=== PATIENT | male | born 1960 | race Caucasian/White ===

== ENCOUNTER 2017-01-10 17:38 | Inpatient (IN) | payer BC ==
[~2017-01-10] VITALS: Ht 177.8 cm; Wt 94.5 kg
--- NOTE | ~2017-01-10 | ER ---
PATIENT'S NAME: LAURENCE YOON [facility] AGE: 56 Y [address] ROOM: [place] [address] LOCATION: GPCU ADMIT DATE: 01/10/2017 ER/Outpatient Report DISCHARGE DATE: FAMILY PHYSICIAN: Charles Jordan MD ATTENDING PHYSICIAN: Adolfo Hurley CHIEF COMPLAINT: Chest pain. HISTORY OF PRESENT ILLNESS: The patient was out riding his bicycle today when he developed progressive worsening of substernal chest pain, tightness, nausea and vomiting. He had been splashing water over himself to try to make him feel better. He rode about 20 miles. He said this was a tough ride today, but it was not completely out of character for that. He is otherwise noting some lightheadedness, but no other significant concerns. PAST MEDICAL HISTORY: Notable for elevated cholesterol which he was treating. PAST SURGICAL HISTORY: Noncontributory. 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 No other significant findings. Denies alcohol, tobacco or drug use. PHYSICAL EXAMINATION: VITAL SIGNS: Blood pressure 160/93, heart rate is 77, and SpO2 is 99% on room air. GENERAL: Age-appropriate male. Ill appearance with poor color. He is in obvious discomfort and very mild distress. The patient otherwise feeling okay. NEURO: The patient is awake and alert, follows commands in all extremities. No asymmetry. No speech difficulties. HEENT: Normocephalic, atraumatic. Eyes are PERRL. Oropharynx is clear. NECK: Supple. Trachea is midline. CHEST: Heart is regular rate and rhythm with no obvious murmurs. LUNGS: Clear to auscultation bilateral. No rhonchi, wheezes, or rales. ABDOMEN: Soft, nontender, and nondistended. No rebound or guarding. EXTREMITIES: Warm and well perfused with no significant abnormalities. No edema or erythema. SKIN: Damp cool and clammy, the patient has been pouring water over himself however. PATIENT'S NAME: LAURENCE YOON [facility] AGE: 56 Y [address] ROOM: [place] [address] LOCATION: GPCU ADMIT DATE: 01/10/2017 ER/Outpatient Report DISCHARGE DATE: FAMILY PHYSICIAN: Charles Jordan MD ATTENDING PHYSICIAN: Adolfo Hurley LABORATORY DATA AND X-RAYS: WBCs are elevated at 12.7, hemoglobin 16.7, and platelets of 244. Lactate is elevated at 8.3. Potassium is 3.0, CO2 is 26, glucose is 210. No abnormalities of the LFTs. GFR 57. Magnesium, CPK, CK-MB and troponin are within normal limits with magnesium of 1.6. CRP is 1.05. His Procalcitonin is below threshold. IMAGING: EKG appears to be sinus rhythm with ST-segment elevation, most prominent in lead V2, but notable in V1, V3 and V4. IMPRESSION: ST segment elevation myocardial infarction. EMERGENCY DEPARTMENT COURSE: The patient was seen and evaluated as above. He arrived at 1738 hours. Initial EKG was dated, at 05:45, arrival time was 05:38. STEMI was activated at approximately 05:55. I did discuss the case with Dr. Hurley, [employer]. We will proceed to the catheterization lab. Abciximab was ordered and initiated in the emergency department. The patient did receive aspirin and the nitroglycerin drip in addition to some Zofran for his nausea. He was perhaps feeling slightly better. His clamminess did improve significantly after his wet clothes were removed as well. The patient was taken to the catheterization lab for intervention and presumed acute coronary lesion. CRITICAL CARE TIME: 31 minute included on this patient for ordering and interpreting EKG, ordering labs, patient evaluation, initiating nitroglycerin, initiating abciximab, initiating the STEMI alert, consult with Dr. Hurley and care is warranted for acute life-threatening pathology. MD TERELL QUIÑONES/laurie /[id number] d: 01/11/17 0704 t: 01/11/17 0814, OUTPATIENT REPORT
--- NOTE | ~2017-01-10 | CATH ---
Cardiac Diagnostic + PCI Report Demographics Patient Name KARRIE Seymour Gender Male Date of 1960 Age 56 year(s) Patient Number [id number] Date of Study 01/10/2017 Visit Number [id number] Room Number G6[address] [place] [id number] Ht 177.8 cm Wt 94 kg Referring Xavi Mata MD Primary Physician Physician Performing Xavi Mata MD Secondary Physician Physician Diagnostic Xavi Mata MD Assisting Physician Physician Interventional Xavi Mata MD Physician Bridge Contractor Physician Findings and Conclusions Diagnostic Findings and Conclusion 1 vessel CAD ( 100% LAD) Diagnostic Recommendations PCI LAD Interventional Findings and Conclusion 0.014 Prowater 2.5x15 Emerge 3X24 Promus to 3.11 Interventional Recommendations DAPT x1 year Routine post angioseal Risk Factor modifications Procedure Description The patient was brought to the diagnostic cardiac catheterization-EP laboratory in an emergent, non-sedated state. Informed consent was obtained in verbal form after the risks and benefits were explained. The patient had no further questions and agreed to proceed. The puncture-incision site(s) were shaved and prepped with ChloraPrep and draped in the usual sterile manner. Conscious sedation, supplemental oxygen, and pain control medications were delivered by a registered nurse under physician guidance. Surface ECG rhythm, blood pressure measurement, and pulse oximetry were monitored throughout the procedure. Arterial access. The access site was infiltrated with lidocaine. The vessel was entered with the Seldinger technique. A sheath was advanced into the vessel and used for catheter placement. Selective left coronary angiography. A catheter was advanced into the left coronary vessel ostium under Fluoroscopic guidance. Contrast was injected by hand. Images were obtained in multiple projections. Selective right coronary angiography. A catheter was advanced into the right coronary vessel ostium under fluoroscopic guidance. Contrast was injected by hand. Images were obtained in multiple projections. Left heart catheterization. A catheter was advanced across the aortic valve to the left ventricle under fluoroscopic guidance. Resting hemodynamics were obtained. Angioplasty and Stent Placement: A guiding catheter was used to intubate the vessel. A 0.14 wire was then used to cross the lesion. A balloon catheter was placed across the lesion and inflated. The balloon catheter was then removed. A Drug Eluting Stent was placed and inflated. Post placement angiograms were performed. Arterial artery hemostasis was achieved. The patient was transferred to a regular nursing floor via cart accompanied by a nurse. The patient left the laboratory in stable condition. Diagnostic Cath Status: Emergency Interventional Cath Status: Emergency Procedure Procedure Type Diagnostic procedure:Angiography:, Coronary Angios /[facility] PCI procedure:Drug Eluting Coronary Stent:, LAD The procedure was explained in detail to the patient. Risks, complications and alternative treatments were reviewed. Written consent was obtained. Medications Reviewed with Patient prior to Procedure. Angiographic Findings Dominance: Right Cardiac Arteries and Lesion Findings LMCA: Abnormal.large ostial spasm LAD: Abnormal. Lesion on Prox LAD: Ostial.100% stenosis reduced to 0%. Pre procedure GUADALUPE 0 flow was noted. Post Procedure GUADALUPE III flow was present. The guidewire cross was successful.The lesion was diagnosed as a high risk lesion.Culprit lesion. Devices used - Prowater Wire .014 x 180. Number of passes: 1. - Prowater Wire .014 x 180. Number of passes: 1. - Emerge Balloon 2.5 x 15. 1 inflation(s) to a max pressure of: 8 donna. - Promus Premier 3.0 x 24 Stent. 1 inflation(s) LCx: Normal (0% Stenosis). RCA: Normal (0% Stenosis). Ramus: Normal (0% Stenosis). Coronary Tree Procedure Data Procedure Date Date: 01/10/2017Start: 06:31 PMEnd: 08:39 PM Entry Locations - Retrograde Percutaneous access was performed through the Right Femoral artery (Primary location). A 6 Fr sheath was inserted. Procedure Medications Order and Administration + + + + + !Time !Medication !Dosage !Route ! + + + + + !01/10/2017 06:30 !Versed !1 mg !I.V. ! !PM ! ! ! ! + + + + + !01/10/2017 06:30 !Fentanyl !50 mcg ! ! !PM ! ! ! ! + + + + + !01/10/2017 06:32 !Fentanyl !50 mcg ! ! !PM ! ! ! ! + + + + + !01/10/2017 06:35 !Versed !0.5 mg !I.V. ! !PM ! ! ! ! + + + + + !01/10/2017 06:42 !Angiomax (Bivalirudin) !70 mg ! ! !PM !(ACC_5) ! ! ! + + + + + !01/10/2017 06:42 !Angiomax (Bivalirudin) !1.75 mg/kg/hr! ! !PM !(ACC_5) ! ! ! + + + + + 01/10/2017 06:49 !Nitroglycerin !5 mcg/min !I.V. drip ! !PM ! ! ! ! + + + + 01/10/2017 06:57 !Nitroglycerin ! !I.V. drip ! !PM ! ! ! ! + + + + 01/10/2017 06:58 !Nipride !50 mcg !I.C. ! !PM ! ! ! ! + + + + 01/10/2017 07:02 !Nipride !50 mcg !I.C. ! !PM ! ! ! ! + + + + + 01/10/2017 07:04 !0.9% NaCl !125 ml !I.V. drip ! !PM ! ! ! ! + + + + + 01/10/2017 07:11 !Brilinta (Ticagrelor) !180 mg !P.O. ! !PM !(ACC_20) ! ! ! + + + + 01/10/2017 07:39 !Oxygen ! ! ! !PM ! ! ! ! + + + + 01/10/2017 07:42 !Potassium Chloride !60 meq !I.V. ! !PM ! ! ! ! + + + + 01/10/2017 06:21 !Reopro (Abciximab) (ACC_7) !17 ! ! !PM ! ! ! ! + + + + + !01/10/2017 07:42 !Reopro (Abciximab) (ACC_7) !10 mcg/min !I.V. ! !PM ! ! ! ! + + + + + !01/10/2017 06:25 !Reglan !5 mg !I.V. ! !PM ! ! ! ! + + + + + !01/10/2017 07:47 !unlisted medication ! ! ! !PM ! ! ! ! + + + + + Devices Used - A6 Fr. BS JL 4 Diag. Catheterwas used for:Left coronary angiography. - A6 Fr. BS JR 4 Diag. Catheterwas used for:Right coronary angiography. - A6 Fr. XB 3.5 Guide Catheterwas used for:LAD Intervention. - A6 Fr. BS Angled Pigtail Diag. Catheterwas used for:LV Pressures. Contrast Material - Isovue [id number] ml Fluoroscopy Time: Diagnostic: 13:00 minutes. Total: 13:00 minutes. Fluoroscopy Dose: Diagnostic: 2484 mGy. Total: 2484 mGy. Estimated Blood Loss: 5 ml. Medical History Performed Procedures and Imaging Results - No ACC stress or imaging studies were performed. Allergies - No known allergies. Risk Factors The patient risk factors include:hypertension and family history of premature CAD. Admission Data Admission Date: 01/10/2017 Admission Time: 07:14 PM Admit Source: Emergency department Insurance Payors: Private health insurance. Clinical Evaluation Leading to Procedure - The patient's CAD presentation was assessed as: STEMI.The symptom onset was first noted on 01/10/2017 05:15 PM Hemodynamics Condition: Rest O2 Consumption: Estimated: 253.83Heart Rate: 74 bpm Pressures (mmHg) +-----+ + !Site !Pressure ! +-----+ + !AO !247/144 (144) ! +-----+ + !AO !118/75 (96) ! +-----+ + !LV !129/0 ,11 ! +-----+ + !LV !115/10 ,21 ! +-----+ + !LV !147/-9 ,14 ! +-----+ + !LV !147/- ,15 ! +-----+ + !AO !109/68 (88) ! +-----+ + !LV !146/- ,15 ! +-----+ + Valve Gradients and Areas + +---------+---------+---------+ +---------+ + !Valve !Peak !Mean !Area !Index !Flow !Source ! + +---------+---------+---------+ +---------+ + !Aortic !37 !19 ! ! ! ! ! + +---------+---------+---------+ +---------+ + !Aortic !37 !19 ! ! ! ! ! + +---------+---------+---------+ +---------+ + Shunts Oxygen Values O2 Consumption 253.83 Discharge Data Discharge Date: 01/13/2017 Hospital Status: Inpatient Signatures dtt: Adolfo Hurley (cardio) dtd: 01/10/17 1831 Physician Self Edit
--- NOTE | ~2017-01-10 | DS ---
PATIENT'S NAME: LAURENCE YOON [facility] AGE: 56 Y [address] ROOM: [id number] [place], [place] [address] LOCATION: GPCU ADMIT DATE: 01/10/2017 Discharge Summary DISCHARGE DATE: 01/13/2017 FAMILY PHYSICIAN: Charles Jordan MD ATTENDING PHYSICIAN: Adolfo Hurley PRINCIPAL DIAGNOSIS: ST-elevation myocardial infarction, status post drug- eluting stent to left anterior descending. SECONDARY DIAGNOSES: 1. New-onset insulin-dependent diabetes. 2. Polymyalgia rheumatica. 3. Hypertension. HOSPITAL COURSE: This 56-year-old gentleman presented to the hospital with chest pain. He was found to have ST-elevation myocardial infarction and was taken to the catheterization lab with a drug-eluting stent to the LAD. He was started on dual antiplatelets, statin, and a beta gissell. He was also started on SHAKILA inhibitor to control his blood pressure. An echocardiography was also done in the hospital which showed ejection fraction of 60% to 65% with [id number] concentric left ventricular hypertrophy. His hemoglobin A1c was noted to be 12. He was started on insulin detemir which was titrated upward during the course of the hospitalization with a final dose of 15 units of detemir twice daily. In addition to that, we started him on sliding scale insulin, which is mild. He was informed about the hypoglycemic symptoms as well as to check his blood glucose more frequently in the ensuing days. The patient is a nurse himself. I also recommended to follow up with the primary care physician in 4 days to see how blood glucose is doing and if adjustment of the insulin needs to be made. DISCHARGE MEDICATIONS: 1. Aspirin 81 mg p.o. every day. 2. Atorvastatin 20 mg p.o. every day. 3. Vasotec 2.5 mg p.o. every day. 4. Folic acid 1 mg p.o. every day. 5. Insulin aspart mild sliding scale a.c. and q.h.s. 6. Insulin detemir 15 units subcu b.i.d. 7. Metformin 1 g p.o. twice daily. 8. Methotrexate 20 mg p.o. q.7 days. 9. Metoprolol tartrate 25 mg p.o. twice daily. 10. Omeprazole 20 mg p.o. every morning. 11. Prednisone 5 mg p.o. every morning. 12. Prednisone 1 mg take 2 tablets every morning. 13. Brilinta 90 mg p.o. twice daily. 14. Tramadol 200 mg p.o. twice daily. PATIENT'S NAME: LAURENCE YOON [facility] AGE: 56 Y [address] ROOM: [place] [address] LOCATION: GPCU ADMIT DATE: 01/10/2017 Discharge Summary DISCHARGE DATE: 01/13/2017 FAMILY PHYSICIAN: Charles Jordan MD ATTENDING PHYSICIAN: Adolfo Hurley 15. Venlafaxine XR 150 mg p.o. every morning. 16. Nabumetone 750 mg p.o. every morning. DIET: Diabetic diet. ACTIVITY: As tolerated. FOLLOWUP: Follow up with Dr. Adolfo Hurley in 2 weeks, and follow up with Dr. Jordan, the primary care physician, in 4 days. SUBJECTIVE: On the day of discharge, no acute distress. No acute events overnight. No shortness of breath. No chest pain. No fever. OBJECTIVE: VITAL SIGNS: 123/70, 16, 68, afebrile. GENERAL: No acute distress. Alert and oriented x3. HEENT: Head: Atraumatic, normocephalic. Eyes: Nonicteric. No pallor. Oropharynx: Moist mucous membranes. CARDIOVASCULAR: S1 and S2. No murmur, gallops, or rubs. LUNGS: Clear to auscultation bilaterally. ABDOMEN: Soft, nontender, and nondistended. Bowel sounds are present. EXTREMITIES: No clubbing, cyanosis, or edema. LABORATORY DATA: Notable lab work on discharge: Creatinine 0.8 on 01/12/2017. I spent 40 minutes in discharge planning, coordinating care, and explaining diagnosis as well as providing diabetic education to this patient. MD CHIN HANDY/laurie /[id number] d: 01/13/17 1619 t: 01/20/17 1520, DISCHARGE SUMMARY
--- NOTE | ~2017-01-10 | HP ---
PATIENT'S NAME: LAURENCE YOON [facility] AGE: 56 Y [address] ROOM: [address] [place], [place] [address] LOCATION: [facility] ADMIT DATE: 01/10/2017 History & Physical DISCHARGE DATE: FAMILY PHYSICIAN: Charles Jordan MD ATTENDING PHYSICIAN: Adolfo Hurley DATE OF SERVICE: ADDENDUM: Total time spent in care 40 minutes including chart review, interviewing the patient, examining the patient, addressing all the questions and concerns that the patient had, and going over the plan of care with the patient. I also went over the plan of care with the nurse as well. Half of the total time spent was in chart review and interviewing and examining the patient. The other half of the total time spent was in counseling including addressing all the questions and concerns and also going over the plan of care with the patient. For the details of the history and physical, refer to the history and physical dictated earlier. I had to dictate the history and physical twice because the first time I dictated the H and P was never transcribed. So I dictated the H and P for the second time when I realized that the first one was never transcribed. MD EDY AGRAWAL/laurie /[id number] D: 440 T: HISTORY & PHYSICAL
--- NOTE | ~2017-01-10 | HP ---
PATIENT'S NAME: LAURENCE YOON [facility] AGE: 56 Y [address] ROOM: [address] [place], [place] [address] LOCATION: GPCU ADMIT DATE: 01/10/2017 History & Physical DISCHARGE DATE: FAMILY PHYSICIAN: Charles oJrdan MD ATTENDING PHYSICIAN: Adolfo Hurley DATE OF SERVICE: CHIEF COMPLAINT: Chest pain. HISTORY OF PRESENT ILLNESS: This is a 56-year-old male, who says that he came here today to our hospital to donate blood. He says he donated roughly 800 mL of blood. After that, the patient was riding his bicycle to [place]. He says that when he rode about 18 miles, he felt this bilateral shoulder pain of intensity about 6/10. When he rode on mile 19, the patient felt nauseous, but he did not vomit. When he rode to mile 20, the patient started feeling this substernal chest pain of 10/10 in intensity with radiation to bilateral shoulders. The patient then stopped riding the bicycle and tried to get some rest. However, the chest pain in the substernal area and the bilateral shoulders kept getting worse. The patient called his , who in turn came here to pick him up, and brought him here to the Emergency Room. In the Emergency Room, the patient's chest pain persisted, and he received nitroglycerin without much relief. According to the patient, because currently the EKG cannot be found, I have requested the ER to send up the EKG. The patient says that there is a STEMI. The patient was taken to the [facility] on January 10, 2017, and underwent one drug-eluting stent to the LAD. After that, a repeat EKG was performed, which I can see that in the chart, it was done on January 10, 2017 at 08:02 p.m. It shows sinus rhythm, heart rate of 83, W[place] of 168 msec, QRS of 96 msec, QTc of 403 msec, and no ST-elevation or ST depression. No axis deviation. After the cardiac cath, the patient came to the Progressive Care Unit, and currently is chest pain free. EKG just came down from the ED. In the ED, the EKG on January 10, 2017 at 05:[address] elevation on EKG and heart rate of 77, sinus rhythm. REVIEW OF SYSTEMS: As mentioned in the history of present illness. All other systems were reviewed and they were negative except those mentioned in the history of present illness. PAST MEDICAL HISTORY: PATIENT'S NAME: LAURENCE YOON [facility] AGE: 56 Y [address] ROOM: [place] [address] [facility] ADMIT DATE: 01/10/2017 History & Physical DISCHARGE DATE: FAMILY PHYSICIAN: Charles Jordan MD ATTENDING PHYSICIAN: Adolfo Hurley 1. Gastroesophageal reflux disease. 2. Polymyalgia rheumatica, on prednisone and also on methotrexate. 3. Hyperlipidemia. 4. Depression. 5. Obstructive sleep apnea, on CPAP at night. The patient is very compliant. ALLERGIES: NO KNOWN DRUG ALLERGIES. HOME MEDICATIONS: 1. Methotrexate eight tablets p.o. weekly of 2.5 mg every Friday. 2. Relafen 1000 mg p.o. every morning. 3. Omeprazole 20 mg p.o. daily. 4. Prednisone 7 mg p.o. every morning. 5. Simvastatin 20 mg p.o. daily. 6. Tramadol 200 mg p.o. b.i.d. 7. Venlafaxine 150 mg p.o. every morning. SOCIAL HISTORY: The patient denies any cigarette or any illegal drug use. The patient is a social alcohol drinker, and he denies any alcohol abuse. PAST SURGICAL HISTORY: 1. Status post left knee surgery 5 times in the past due to ACL injury. 2. Status post right shoulder rotator cuff surgery in the past. FAMILY HISTORY: Father has rheumatoid arthritis and mother had cardiac stents placed in her 60s. PHYSICAL EXAMINATION: VITAL SIGNS: At the time of my dictation, temperature was 98, blood pressure was 130/85, respirations were 14, heart rate was 81, and saturation was 97% on room air. GENERAL APPEARANCE: Alert and oriented x3, in no acute distress. HEENT: Pupils were equally round and reactive to light. Extraocular muscles were intact. Nasal turbinates are normal bilaterally. Moist oral mucosa. NECK: No JVD. CARDIOVASCULAR: Regular rate and rhythm. Normal S1 and S2. No murmur. No rubs. No gallops. RESPIRATORY: Clear. Chest wall was nontender to palpation. ABDOMEN: Obese, soft, nontender, and nondistended. Bowel sounds are present. No hepatosplenomegaly. EXTREMITIES: No edema in upper or lower extremities. PATIENT'S NAME: LAURENCE YOON [facility] AGE: 56 Y [address] ROOM: [place] [address] [facility] AD[facility] DATE: 01/10/2017 History & Physical DISCHARGE DATE: FAMILY PHYSICIAN: Charles Jordan MD ATTENDING PHYSICIAN: Adolfo Hurley SKIN: No ulcer. No rash. No cyanosis. NEUROLOGIC: Grossly nonfocal. LABORATORY DATA: Lactic acid of 8.3, CPK of 240, and troponin of 1.330. White blood cells were 12.7, hemoglobin was 16.7, hematocrit was 49.1, MCV was 95.9, and platelets were 190. Glucose is 210, BUN is 12, creatinine is 1.3, sodium is 141, potassium is 3.0, chloride is 102, CO2 is 16, calcium is 9.3, total protein is 7.2, albumin is 4.1, AST is 37, ALT is 55, alkaline phosphatase is 89, total bilirubin is 1.3, magnesium is 1.6, GFR is 57, and anion gap is 26. INR of 1.08 and PTT of 30. CK-MB was 6.5. CRP of 1.05. Procalcitonin is less than 0.05. IMAGING STUDIES: Chest x-ray on admission showed normal chest x-ray. EKG: Two EKGs were performed; one pre and one after cardiac cath. They are already mentioned in the history of present illness. ASSESSMENT AND PLAN: 1. Regarding his anteroseptal ST-elevation myocardial infarction: The patient already underwent a cardiac catheterization. According to the patient, the patient got one drug-eluting stent placed to the LAD. Continue current medications as ordered. Continue aspirin 81 mg p.o. daily, ticagrelor 90 mg p.o. b.i.d., Lipitor 80 mg p.o. daily, enalapril 2.5 mg p.o. daily, and Lopressor 25 mg p.o. b.i.d. Continue current abciximab drip. Continue checking cardiac enzymes every six hours. Repeat EKG in the morning, and also cardiac cath site care in the right groin area. Further plan depends on clinical course. 2. Regarding his hypokalemia: Currently, he has been replaced with IV potassium. 3. Regarding his hypomagnesemia: I will give him 1 g of IV magnesium sulfate one dose now. The goal is to keep the potassium more than 4 and the magnesium more than 2. I will also be checking hemoglobin A1c and also a lipid panel in the morning. 1. Regarding his polymyalgia rheumatica: Continue methotrexate and also prednisone. 2. Gastroesophageal reflux disease: Continue home omeprazole 20 mg p.o. daily. 3. Regarding his obstructive sleep apnea, on CPAP: Continue home CPAP. 4. Deep venous thrombosis prophylaxis: The patient is currently on abciximab drip. 5. Code status: He is a full code. PATIENT'S NAME: LAURENCE YOON [facility] AGE: 56 Y [address] ROOM: [place] [address] [facility] AD[facility] DATE: 01/10/2017 History & Physical DISCHARGE DATE: FAMILY PHYSICIAN: Charles Jordan MD ATTENDING PHYSICIAN: Adolfo Hurley Time spent in care on the day of admission was 35 minutes including chart review, interviewing the patient, examining the patient, and addressing all the questions and concerns that the patient had. I also went over the plan of care with the patient. More than half of the total time spent was in counseling, also addressing the patient's questions and concerns, and going over the plan of care with the patient. The remaining of the total time was spent in chart review, and going over the plan of care with the nurse. Further plan depends on clinical course. MD EDY AGRAWAL/jettl /[id number] D: [id number] T: [id number] HISTORY & PHYSICAL
--- NOTE | ~2017-01-10 | ECHO ---
Transthoracic Echocardiography Report (TTE) Demographics Patient Name LAURENCE YOON Date of Study 01/11/2017 Patient Number [id number] Visit Number [id number] Date of 1960 Room Number G6323 Gender Male Number Age 56 year(s) Referring Nikki Yu Group Sales Manager Irene RVT, RDCS Physician Gail Physician Interpreting Xavi Mata MD Assisted Living Executive Director Physician Supervising Ordering Xavi Mata MD, MD/MLP Physician Nurse Stress Senior Architectural Designer Conclusions Contractility Score Summary Normal Left Ventricular contractility was noted. Summary The estimated left ventricular ejection fraction is 60-65%. Mild to moderate concentric left ventricular hypertrophy. Diastolic assessment reveals Grade I diastolic dysfunction. Procedure Type of Study TTE procedure:2D Echocardiogram, M-Mode, Doppler , Color Doppler. Procedure Date Date: 01/11/2017 Start: 10:25 AM Study Location: Inpatient Portable Technical Quality: Adequate visualization Additional Indications:post STEMI Appropriate Use Criteria: 9 Patient Status: Routine HR: 76 bpm BP: 112/70 mmHg Allergies - No known allergies. M-Mode/2D Measurements LV Diastolic Dimension: 5.2 cm LV Systolic Dimension: 2.52 cm LV Septum Diastolic: 1.54 cm LV PW Diastolic: 1.64 cm AO Root Dimension: 2.9 cm Cardiac Output: 8.55 l/min AV Cusp Separation: 1.9 cm RV Diastolic Dimension: 2.19 cm LA volume: 30 ml LVOT: 2.3 cm RV Base: 2.87 cm LVOT VTI: 27.1 cm RV Mid: 2.71 cm LV Stroke volume: 112.54 ml TAPSE: 3.2 cm TDI-S': 14.5 cm/s Doppler Measurements AV Peak Velocity: 1.27 m/s MV Peak E-Wave: 0.7 m/s AV Peak Gradient: 6.45 mmHg MV Peak A-Wave: 0.67 m/s AV Mean Gradient: 4 mmHg MV E/A Ratio: 1.04 LVOT Peak Velocity: 1.2 m/s MV P1/2t: 70 msec TR Gradient:15.52 mmHg PV Peak Velocity: 0.74 m/s Estimated RAP:7 mmHg PV Peak Gradient: 2.18 mmHg Estimated RVSP: 23 mmHg Estimated PASP: 22.52 mmHg E' Septal Velocity: 0.11 m/s A' Septal Velocity: 0.13 m/s E' Lateral Velocity: 0.12 m/s A' Lateral Velocity: 0.19 m/s Findings Left Ventricle Mild concentric left ventricular hypertrophy. Diastolic assessment reveals Grade II diastolic dysfunction. No regional wall motion abnormalities noted. Right Ventricle Normal right ventricle structure and function. Left Atrium Normal left atrial size. Right Atrium Normal right atrial size. Mitral Valve Normal mitral valve structure and function. Aortic Valve Normal aortic valve structure and function. Tricuspid Valve Trivial tricuspid regurgitation by color Doppler. Pulmonic Valve Normal pulmonic valve structure and function. Pericardial Effusion No evidence of pericardial effusion. Pleural Effusion No evidence of pleural effusion. Contractility Score LV regional wall motion:(0-Non visualized 1-Normal 2-Hypokinesis 3-Akinesis 4-Dyskinesis 5-Aneurysm) Signature dtt: Adolfo Hurley (cardio) dtd: 01/11/17 1025 Physician Self Edit
--- NOTE | ~2017-01-10 | HP ---
PATIENT'S NAME: LAURENCE YOON [facility] AGE: 56 Y [address] ROOM: [address] [address] LOCATION: [facility] ADMIT DATE: 01/10/2017 History & Physical DISCHARGE DATE: FAMILY PHYSICIAN: Charles Jordan MD ATTENDING PHYSICIAN: Adolfo Hurley DATE OF SERVICE: This is a second time that I am dictating this history and physical because apparently when I did the first dictation of the history and physical, it was never transcribed, so now I am doing this for the second time. CHIEF COMPLAINT: Chest pain. HISTORY OF PRESENT ILLNESS: This is a 56-year-old, male who says that yesterday, he came to the hospital to donate 800 mL of blood. After that, he rode his bicycle to [place]. When he rode approximately 18 miles, he felt his bilateral shoulder pain which is localized. When he rode 19 miles, the patient started feeling nauseous and also substernal chest pain, intensity about 6/10 initially then worsened to 10/10. Therefore, he stop riding the bicycle to take some rest. However, the chest pain got worse and also associated with nausea and the pain in bilateral shoulders has still present. No associated shortness of breath or palpitation. The patient was diaphoretic because the patient was riding a bicycle. The patient called the ambulance, but ambulance would take too long to bring the patient to the hospital. Therefore, the patient's family member drove the patient here to the hospital for evaluation. Over here, the patient was found to have ST elevation in the anteroseptal leads and was taken to the cardiac catheterization lab urgently and already underwent 1 drug-eluting stent placed to the LAD. The patient currently is resting comfortably on bed after the stent. Currently, the patient is asymptomatic. REVIEW OF SYSTEMS: As mentioned in the history of present illness. All other system were reviewed and were negative except those mentioned in the history of present illness. PAST MEDICAL HISTORY: 1. Gastroesophageal reflux disease. 2. Polymyalgia rheumatica. 3. Hyperlipidemia. 4. Depression. 5. Obstructive sleep apnea, on CPAP. ALLERGIES: PATIENT'S NAME: LAURENCE YOON [facility] AGE: 56 Y [address] ROOM: [id number] [place], [place] [address] LOCATION: [facility] ADMIT DATE: 01/10/2017 History & Physical DISCHARGE DATE: FAMILY PHYSICIAN: Charles Jordan MD ATTENDING PHYSICIAN: Adolfo Hurley NO KNOWN DRUG ALLERGIES. HOME MEDICATIONS: Will be reconciled once the list is ready. SOCIAL HISTORY: The patient is a social alcohol drinker, but he denies any alcohol abuse. He denies any cigarette or any illegal drug use. PAST SURGICAL HISTORY: 1. Status post left knee surgery in the past. 2. Status post right shoulder surgery in the past. FAMILY HISTORY: Father has rheumatoid arthritis and the mother had a cardiac stents placed in her 60s. PHYSICAL EXAMINATION: VITAL SIGNS: On the day of my evaluation, temperature 98.4, heart rate was 81, respiration was 16, blood pressure was 120/72, and saturation was 96% on room air. GENERAL APPEARANCE: Alert and oriented x3, in no acute distress. HEENT: Pupils equally round and reactive to light. Extraocular muscles intact. Anicteric sclerae. Nasal turbinates are normal bilaterally. Moist oral mucosa. NECK: No JVD. CARDIOVASCULAR: Regular rate and rhythm. Normal S1, S2. No murmur. No rubs. No gallops. RESPIRATORY: Clear to auscultation. Chest wall nontender to palpation. ABDOMEN: Soft, nontender, nondistended, normal bowel sounds, and no hepatosplenomegaly. Bowel sounds are present. EXTREMITIES: No edema in upper or lower extremity. The right groin area looks good without any oozing of blood or pain. NEUROLOGICAL: Grossly nonfocal. SKIN: No ulcer, no rash, no cyanosis. LABORATORY DATA: Lactic acid 8.3, repeat one shows 0.9. CPK 274 and troponin less than 0.04. CK- MB 15.9. White blood cell 6.8, hemoglobin 13.2, hematocrit 39, platelet 186, glucose 298, BUN 12, creatinine 0.8, sodium 141, potassium 3, chloride 107, CO2 26, calcium 8.6, total protein 5.5, albumin 4.1, AST 43, ALT 53, alkaline phosphatase 83, total bilirubin 1.3, direct bilirubin 0.2, magnesium 1.6. Anion gap 26, GFR 57, hemoglobin A1c pending. Lipid panel pending. INR 1.08, PTT 30. Procalcitonin less than 0.05. CK-MB 2.2. IMAGING STUDIES: PATIENT'S NAME: LAURENCE YOON [facility] AGE: 56 Y [address] ROOM: [id number] [place] [id number] LOCATION: [facility] ADMIT DATE: 01/10/2017 History & Physical DISCHARGE DATE: FAMILY PHYSICIAN: Charles Jordan MD ATTENDING PHYSICIAN: Adolfo Hurley Chest x-ray on admission showed normal chest x-ray. EKG on admission showed ST-elevation in the anterior septal leads. A repeat EKG after the cardiac cath stent to the LAD showed resolution of the ST elevation in the anteroseptal leads. Both EKG have sinus rhythm. ASSESSMENT AND PLAN: 1. Regarding his anteroseptal ST-segment elevation myocardial infarction. The patient is status post 1 drug-eluting stent placed to the LAD. Currently, he is comfortable. Denies any chest pain or shortness of breath. We will continue the current medication with aspirin, Brilinta, abciximab, Lipitor. Lopressor and enalapril. Keep cycling cardiac enzymes and follow up with Cardiology again in the morning. Further plan depends on clinical course. EKG in the morning. Follow up with A1c and lipid panel in the morning. 2. Regarding his obstructive sleep apnea. Continue home CPAP. 3. Regarding his gastroesophageal reflux disease. We will continue Protonix 20 mg p.o. daily. 4. Regarding his polymyalgia rheumatica. We will continue home steroids with prednisone and also methotrexate every Saturdays. 5. Depression. Continue his venlafaxine 150 mg p.o. every morning. 6. Deep venous thrombosis prophylaxis. He is on abciximab. 7. Code status. He is a full code. Time spent in care on the day of admission TYESHA QUESADA MD CC/modl /[id number] D: [id number] T: [id number] HISTORY & PHYSICAL
[2017-01-10 17:59] LABS: BASOPHIL # 0.1 K/uL (0.0-0.2); BASOPHIL % 0.7 %; EOSINOPHIL # 0.1 K/uL (0.0-0.5); EOSINOPHIL % 0.5 %; HEMATOCRIT 49.1 % (37.0-53.0); HEMOGLOBIN 16.7 g/dL (12.0-17.0); IMMATURE GRANULOCYTE # 0.1 K/uL (0.0-0.3); IMMATURE GRANULOCYTE % 0.6 %; LYMPHOCYTE # 2.8 K/uL (0.8-4.0); LYMPHOCYTE % 22.3 %; MCH 32.6 pg (27.0-34.0); MCV 95.9 fl (83.0-98.0); MONOCYTE % 7.9 %; MPV 10.2 fl (9.4-12.4); NEUTROPHIL # (ANC) 8.7 K/uL (1.4-9.0); NRBC % 0 /100WBC (0-0.00); PLATELET COUNT 244 K/uL (150-450); RBC 5.12 M/uL (4.00-6.00); RDW-CV 12.4 % (11.9-14.6); WBC 12.7 K/uL (4.0-11.0)
[2017-01-10 18:25] LABS: ALBUMIN 4.1 gm/dL (3.5-5.0); ALK PHOS 89 IU/L (33-138); ALT 55 IU/L (12-78); AST 37 IU/L (10-40); BLOOD UREA NITROGEN 12 mg/dL (6-24); CALCIUM 9.3 mg/dL (8.5-10.5); CHLORIDE 102 mMol/L (96-110); CPK 274 IU/L (35-332); CREATININE 1.3 mg/dL (0.6-1.3); ESTIMATED GFR (MDRD EQUATION) 57; MAGNESIUM 1.6 mg/dL (1.8-2.6); SODIUM 141 mMol/L (135-145); TOTAL BILIRUBIN 1.3 mg/dL (0.0-1.5); TOTAL PROTEIN 7.2 g/dL (6.0-8.4)
[2017-01-10 18:31] LABS: CO2 16 mMol/L (22-32)
[2017-01-10 19:37] LABS: PROTIME 70.9 SECONDS (9.8-11.4); PTT 86 SECONDS (25-32)
[2017-01-10 19:41] LABS: INR - (THERAPEUTIC) 6.62 (0.92-1.07)
[2017-01-10 20:46] LABS: ALBUMIN 4.1 gm/dL (3.5-5.0); TOTAL BILIRUBIN 1.3 mg/dL (0.0-1.5); TOTAL PROTEIN 7.2 g/dL (6.0-8.4)
[2017-01-10] MEDS ORDERED: DELTASONE5 MG PO (20:46)
[2017-01-10] MEDS ORDERED: RELAFEN500 MG PO (20:47)
[2017-01-10] MEDS ORDERED: NABUMETONE750 MG PO (20:48)
[2017-01-10] MEDS ORDERED: EFFEXOR XR150 MG PO (20:50)
[2017-01-10] MEDS ORDERED: PRILOSEC20 MG PO (20:51)
[2017-01-10] MEDS ORDERED: METHOTREXATE2.5 MG PO (20:54)
[2017-01-10] MEDS ORDERED: ULTRAM50 MG PO (20:56)
[2017-01-10] MEDS ORDERED: ZOCOR20 MG PO (20:57)
[2017-01-10 22:13] LABS: INR - (THERAPEUTIC) 1.08 (0.92-1.07); PROTIME 11.4 SECONDS (9.8-11.4)
--- NOTE | 2017-01-11 00:36 | NUR ---
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 Patient was riding his bike to [employer] and was on about mile 18 when he started feeling unwell. Called his and brought him straight to the ER. Code stemi. Arrived to floor VSS on RA, IV medications infusing. R)groin site soft/nontender, no bleeding and csm wnl. Family at bedside.
[2017-01-11 03:35] LABS: BASOPHIL # 0.1 K/uL (0.0-0.2); BASOPHIL % 0.6 %; EOSINOPHIL # 0.2 K/uL (0.0-0.5); EOSINOPHIL % 1.9 %; HEMATOCRIT 40.6 % (37.0-53.0); HEMOGLOBIN 13.8 g/dL (12.0-17.0); IMMATURE GRANULOCYTE % 0.2 %; LYMPHOCYTE # 2.1 K/uL (0.8-4.0); LYMPHOCYTE % 22.9 %; MCH 32.9 pg (27.0-34.0); MCV 96.7 fl (83.0-98.0); MONOCYTE # 0.8 K/uL (0.0-1.0); MONOCYTE % 8.8 %; MPV 10.4 fl (9.4-12.4); NEUTROPHIL % 65.6 %; NRBC % 0 /100WBC (0-0.00); PLATELET COUNT 194 K/uL (150-450); RDW-CV 12.5 % (11.9-14.6); WBC 9.1 K/uL (4.0-11.0)
[2017-01-11 03:53] LABS: ALK PHOS 65 IU/L (33-138); ALT 41 IU/L (12-78); ANION GAP 13.2 (10.0-19.0); AST 32 IU/L (10-40); BLOOD UREA NITROGEN 10 mg/dL (6-24); CHLORIDE 108 mMol/L (96-110); CO2 23 mMol/L (22-32); CREATININE 0.9 mg/dL (0.6-1.3); ESTIMATED GFR (MDRD EQUATION) > 60; POTASSIUM 4.2 mMol/L (3.7-5.1); SODIUM 140 mMol/L (135-145); TOTAL BILIRUBIN 0.6 mg/dL (0.0-1.5); TOTAL PROTEIN 5.5 g/dL (6.0-8.4)
--- NOTE | 2017-01-11 04:38 | NUR ---
Significant Event: A/O, SBP 100-120s, HR 60-80s, RA, afebrile, denies pain, R)groin soft, no hematoma, gauze and tegaderm intact, patient ambulating well, 60 KCl IV given and 1g IV Mag given, Reapro continues at 10 mcg/min until 0615 to L)hand, home cpap at HS Follow up: continue plan of care, trending enzymes
[2017-01-11] MEDS ORDERED: DELTASONE1 MG PO (10:59)
[2017-01-11] MEDS ORDERED: LIPITOR20 M1 PO (11:00)
[2017-01-11] MEDS ORDERED: FOLIC ACID1 MG PO (11:01)
--- NOTE | 2017-01-11 16:16 | NUR ---
Significant Event: A/O X3. UP AD TRISH, AMBULATES IN HALLS, TOLERATING WELL. C/O HEADACHE, TRAMADOL 200 MG GIVEN X2. PIV TO RIGHT AC AND LEFT HAND SL'D. VSS. WILL INITIATE METFORMIN @ 1800. ACCU-CHECKS Q6H X24 HOURS. X1 DOSE OF LEVEMIR 5 UNITS GIVEN. 2D ECHO DONE. VSS. CPAP WHEN SLEEPING. ROOM AIR WHEN AWAKE. Follow up: LABS IN AM. PLAN FOR DISCHARGE TOMORROW.
[2017-01-12 03:39] LABS: BASOPHIL % 0.6 %; EOSINOPHIL # 0.2 K/uL (0.0-0.5); EOSINOPHIL % 2.2 %; HEMOGLOBIN 13.2 g/dL (12.0-17.0); IMMATURE GRANULOCYTE % 0.3 %; LYMPHOCYTE # 2.2 K/uL (0.8-4.0); LYMPHOCYTE % 32.5 %; MCH 33.2 pg (27.0-34.0); MCHC 33.8 gm/dL (32.0-36.5); MONOCYTE # 0.6 K/uL (0.0-1.0); MONOCYTE % 8.4 %; MPV 10.2 fl (9.4-12.4); NEUTROPHIL # (ANC) 3.8 K/uL (1.4-9.0); NRBC % 0 /100WBC (0-0.00); PLATELET COUNT 186 K/uL (150-450); RBC 3.98 M/uL (4.00-6.00); RDW-CV 12.7 % (11.9-14.6); WBC 6.8 K/uL (4.0-11.0)
[2017-01-12 03:56] LABS: ALBUMIN 2.9 gm/dL (3.5-5.0); ANION GAP 11.9 (10.0-19.0); BLOOD UREA NITROGEN 12 mg/dL (6-24); CALCIUM 8.6 mg/dL (8.5-10.5); CHLORIDE 107 mMol/L (96-110); CO2 26 mMol/L (22-32); CREATININE 0.8 mg/dL (0.6-1.3); ESTIMATED GFR (MDRD EQUATION) > 60; PHOSPHORUS 3.8 mg/dL (2.5-4.9); POTASSIUM 3.9 mMol/L (3.7-5.1); SODIUM 141 mMol/L (135-145)
--- NOTE | 2017-01-12 04:54 | NUR ---
Significant Event:A/Ox3. Afebrile. RA. SBP 108-116. Up ad evan in room and hallway. No c/o pain. Gauze and tegaderm removed from groin and replaced with bandaid. Tender to palpation, no hematoma noted. PIV to L)hand and R)AC saline locked. BG at 2300-245 received 2 units. Will check BG prior to shift change. Follow up:Possible discharge to home today. Discharge medications on chart for MD.
--- NOTE | 2017-01-12 15:53 | NUR ---
Significant Event: A/O X3. UP AD TRISH. AMBULATES IN HALLS. PIV TO RIGHT AC, SL'D. C/O MILD STIFFNESS, SCHEDULED ULTRAM GIVEN. VOIDING WELL. BM X1. RIGHT GROIN SITE TENDER BUT WNL. BLOOD SUGARS REMAIN ELEVATED, ADJUSTING INSULIN DOSES. Follow up: PLAN TO DISCHARGE HOME TOMORROW.
--- NOTE | 2017-01-13 04:49 | NUR ---
Significant Event:No significant changes. BG 228-249 covered with 2 units each time. No c/o pain. Ambulated in room and halls. VSS on RA. IV to R)AC saline locked. Follow up:Possible discharge to home.
[2017-01-13] MEDS ORDERED: ASPIRIN (CHILDR81 MG PO (14:07)
[2017-01-13] MEDS ORDERED: VASOTEC2.5 MG PO (14:12)
[2017-01-13] MEDS ORDERED: NOVOLOG100 UNIT/M SUB-Q (14:13)
[2017-01-13] MEDS ORDERED: LEVEMIR100 UNIT/1 SUB-Q (14:15)
[2017-01-13] MEDS ORDERED: GLUCOPHAGE1000 MG PO (14:15)
[2017-01-13] MEDS ORDERED: LOPRESSOR25 MG PO (14:19)
[2017-01-13] MEDS ORDERED: BRILINTA90 MG PO (14:25)
--- NOTE | 2017-01-13 18:49 | NUR ---
DISCHARGE: A/O X3. UP AD TRISH. VSS. DENIES PAIN. DISCHARGE INSTRUCTIONS COMPLETED. DIABETES EDUCATION COMPLETED. SCRIPT FOR CPAP WITH SUPPLIED SENT. RIGHT GROIN SITE ECCHYMOTIC, BANDAID INTACT. PIV REMOVED. NO FURTHER QUESTIONS. ESCORTED TO [facility] BY RN @ 1510 FOR DISCHARGE.
== END 2017-01-13 15:10 | disposition disaster alternative care site (69) | DRG 247 ==
LOC: GMED 17:38 → GPCU 19:14
PROVIDERS: Emergency Medicine; ADMIT Internal Medicine Interventional Cardiology
DX: I21.09 ST elevation (STEMI) myocardial infarction involving other coronary artery of anterior wall (principal); E83.42 Hypomagnesemia; I10 Essential (primary) hypertension; E11.9 Type 2 diabetes mellitus without complications; K21.9 Gastro-esophageal reflux disease without esophagitis; M35.3 Polymyalgia rheumatica; E87.6 Hypokalemia; E78.5 Hyperlipidemia, unspecified; F32.9 Major depressive disorder, single episode, unspecified; G47.33 Obstructive sleep apnea (adult) (pediatric)
CPT/HCPCS: C1725; C1760; C1769; C1874; C1887; C9606; J0130; J0171; J0282; J0583; J1644; J1650; J2250; J2405; J2765; J3010; J3475; J3480; J7030; J7040; J7050; J7060; J7512; J8610

== ENCOUNTER → 2017-02-26 | Outpatient (CLI) | payer OTHER ==
[~2017-02-26] MED LIST: ASPIRIN (CHILDR81 MG PO; BRILINTA90 MG PO; DELTASONE1 MG PO; DELTASONE5 MG PO; EFFEXOR XR150 MG PO; FOLIC ACID1 MG PO; GLUCOPHAGE1000 MG PO; LEVEMIR100 UNIT/1 SUB-Q; LIPITOR20 M1 PO; LOPRESSOR25 MG PO; METHOTREXATE2.5 MG PO; NABUMETONE750 MG PO; NOVOLOG100 UNIT/M SUB-Q; PRILOSEC20 MG PO; RELAFEN500 MG PO; ULTRAM50 MG PO; VASOTEC2.5 MG PO; ZOCOR20 MG PO
[2017-02-26 16:50] LABS: BASOPHIL % 0.6 %; EOSINOPHIL # 0.1 K/uL (0.0-0.5); EOSINOPHIL % 1.3 %; HEMATOCRIT 38.1 % (37.0-53.0); HEMOGLOBIN 12.8 g/dL (12.0-17.0); IMMATURE GRANULOCYTE % 0.2 %; LYMPHOCYTE # 1.6 K/uL (0.8-4.0); LYMPHOCYTE % 26.3 %; MCH 33.9 pg (27.0-34.0); MCHC 33.6 gm/dL (32.0-36.5); MCV 100.8 fl (83.0-98.0); MONOCYTE # 0.5 K/uL (0.0-1.0); MONOCYTE % 7.7 %; MPV 9.3 fl (9.4-12.4); NEUTROPHIL % 63.9 %; NRBC % 0 /100WBC (0-0.00); PLATELET COUNT 223 K/uL (150-450); RBC 3.78 M/uL (4.00-6.00); RDW-CV 14.1 % (11.9-14.6); WBC 6.2 K/uL (4.0-11.0)
[2017-02-26 17:04] LABS: ALBUMIN 3.8 gm/dL (3.5-5.0); CREATININE 1.2 mg/dL (0.6-1.3)
== END | disposition disaster alternative care site (69) ==
LOC: GLAB 02-25 09:15
PROVIDERS: Nurse Practitioner Family
DX: M35.3 Polymyalgia rheumatica (principal); Z79.899 Other long term (current) drug therapy